=== PATIENT | male | born 1980 | race Caucasian/White ===

== ENCOUNTER 2020-04-13 07:13 | Outpatient (CLI) | payer BC ==
[2020-04-13 14:49] LABS: #Eosinphils 0.1 10x3/uL (0.0-0.5); #Monocytes 0.5 10x3/uL (0.0-1.1); #Neutrophils 3.6 10x3/uL (1.5-8.4); %Basophils 0.6 % (0.0-2.0); %Eosinophils 1.3 % (0.0-6.0); %Lymphocytes 39.3 % (18.0-47.0); %Monocytes 7.1 % (0.0-10.0); %Neutrophils 51.4 % (40.0-75.0); Hemoglobin 14.6 g/dL (14.0-18.0); Mean Corpuscular HGB CONC 34.4 G/DL (32.0-36.0); Mean Corpuscular Hemoglobin 32.9 PG (27.0-33.0); Mean Corpuscular Volume 95.7 fl (80.0-100.0); Mean Platelet Volume 9.6 fl (7.4-10.4); Platelet Count 318 10x3/uL (130-400); RBC Distribution Width 12.5 % (11.5-14.5); Red Blood Cell (RBC) Count 4.44 10x6/uL (4.40-5.80)
[2020-04-14 05:16] LABS: SARS-CoV-2 PCR by NAA Not Detected (NotDetected)
== END 2020-04-13 07:14 | disposition home or self-care (01) ==
LOC: LABBT 07:13
PROVIDERS: ATTEND Orthopaedic Surgery
DX: Z01.812 Encounter for preprocedural laboratory examination (principal); Z20.822 Contact with and (suspected) exposure to COVID-19; G56.01 Carpal tunnel syndrome, right upper limb
CPT/HCPCS: 85025; 87635; U0003; U0005

== ENCOUNTER 2020-04-16 07:31 | Day surgery (SDC) | payer BC ==
[2020-04-14 13:41] VITALS: BMI 25.7
[2020-04-16] MEDS ORDERED: ePHEDrine 50 MG/ML VIAL ONE (08:42)
[2020-04-16] MEDS ORDERED: Lidocaine 1% PF 5 ML VIAL ONE (08:42)
[2020-04-16] MEDS ORDERED: Ketorolac Tromethamine 30 MG/ML VIAL ONE (08:42)
[2020-04-16] MEDS ORDERED: PROPOFOL 200 MG/20 ML VIAL ONE (08:42)
[2020-04-16] MEDS ORDERED: Dexamethasone 20 MG/5 ML VIAL ONE (08:42)
[2020-04-16] MEDS ORDERED: Ondansetron PF 4 MG/2 ML Vial ONE (08:42)
[2020-04-16] MEDS ORDERED: Lidocaine 1% (PF) 30 ML VIAL ONE (09:37)
[2020-04-16] MEDS ORDERED: Fentanyl 100 MCG/2 ML VIAL ONE (09:38)
[2020-04-16] MEDS ORDERED: Midazolam HCl 2 mg/2 ml Vial ONE (09:38)
== END 2020-04-16 13:30 | disposition home or self-care (01) ==
LOC: SDC 07:31
PROVIDERS: ATTEND Orthopaedic Surgery
PROC: 01N50ZZ Release Median Nerve, Open Approach (ICD-10-PCS; principal; 2020-04-16)
DX: G56.03 Carpal tunnel syndrome, bilateral upper limbs (principal)
CPT/HCPCS: J0690; J1100; J1885; J2001; J2250; J2405; J2704; J3010; J3490